=== PATIENT | male | born 1960 | race Caucasian/White ===

== ENCOUNTER 2017-05-09 14:37 | Emergency (ER) | payer BC ==
[~2017-05-09] VITALS: Ht 185.4 cm; Wt 112.9 kg
[2017-05-09] MEDS ORDERED: NORVASC5 MG PO (17:01)
[2017-05-09] MEDS ORDERED: LOVASTATIN20 MG PO (17:01)
[2017-05-09 17:15] VITALS: BP 154/95
== END 2017-05-09 17:16 | disposition home or self-care (01) ==
LOC: EME 14:37
DX: Z76.0 Encounter for issue of repeat prescription (principal); I10 Essential (primary) hypertension; E78.5 Hyperlipidemia, unspecified; F17.200 Nicotine dependence, unspecified, uncomplicated
CPT/HCPCS: 99281; 99284